=== PATIENT | female | born 1970 | race Hispanic/Latino ===

== ENCOUNTER → 2019-05-16 | Outpatient (CLI) | payer BC ==
[~2019-05-16] MED LIST: ALBU90AE IH; AZEL23SP NS; BUDE10.2 IH; CETI10CA5 PO; CITA40TA14 PO; IBUP-2071 PO; MONT10TA21 PO; OXYB5 PO; VIT D2 PO
== END | disposition home or self-care (01) ==
LOC: RAH 11:02
PROVIDERS: ATTEND Orthopaedic Surgery
DX: S93.491A Sprain of other ligament of right ankle, initial encounter (principal); M77.31 Calcaneal spur, right foot; X58.XXXA Exposure to other specified factors, initial encounter; Y93.89 Activity, other specified; Y92.89 Other specified places as the place of occurrence of the external cause; Y99.8 Other external cause status
CPT/HCPCS: 73721

== ENCOUNTER → 2019-11-14 | Outpatient (CLI) | payer BC | END | disposition home or self-care (01) | LOC: RAH 15:46 | PROVIDERS: ATTEND Physical Medicine & Rehabilitation | DX: M54.12 Radiculopathy, cervical region (principal) | CPT/HCPCS: 72040 ==

== ENCOUNTER 2019-12-31 06:03 | Day surgery (SDC) | payer BC ==
[2019-12-27 10:02] VITALS: BP 128/96
[2019-12-31] VITALS (12 sets, daily range): BP systolic 110–128; BP diastolic 68–79
[~2019-12-31] VITALS: Ht 161.3 cm; Wt 77.0 kg
[~2019-12-31 06:03] MED LIST changes: -AZEL23SP NS; -CITA40TA14 PO; +CYCL10 PO; +DOCU-116 PO; +FISH OIL PO; +FLUT16H NASAL; -IBUP-2071 PO; +LEVO50TA11 PO; +PANT40TA PO; +PREG75 PO; +SULF500T8 PO; +TIOT18CA3 IH; +TOCI162D SQ; +VENL-53 PO
[2019-12-31] MEDS ORDERED: LIDOCAINE HCL-MPF 0.5% 50ML VIAL IJ ONE (07:07)
[2019-12-31] MEDS ORDERED: LACTATED RINGERS 1000ML 1,000 ML IV ONE (07:15)
[2019-12-31] MEDS: CLINDAMYCIN 900 MG/D5% WATER 50 ML IV SCH ×2 (07:30→08:15)
[2019-12-31] MEDS ORDERED: MIDAZOLAM HCL 1 MG/ML 2ML VIAL ONE ×2 (07:39→08:25)
[2019-12-31] MEDS ORDERED: FENTANYL CITRATE PF 50 MCG/1 ML 2ML VIAL ONE (07:39)
[2019-12-31] MEDS ORDERED: MEPERIDINE-PF 25 MG/ML SYG ONE (09:04)
== END 2019-12-31 10:25 | disposition home or self-care (01) ==
LOC: DAH 06:03
PROVIDERS: ATTEND Neurological Surgery
DX: G56.01 Carpal tunnel syndrome, right upper limb (principal); M79.7 Fibromyalgia; J45.909 Unspecified asthma, uncomplicated; M19.90 Unspecified osteoarthritis, unspecified site; M06.9 Rheumatoid arthritis, unspecified; Z79.899 Other long term (current) drug therapy; Z88.0 Allergy status to penicillin; Z88.8 Allergy status to other drugs, medicaments and biological substances; Z11.59 Encounter for screening for other viral diseases; Z98.890 Other specified postprocedural states
CPT/HCPCS: 36415; 64721; A4215 ×2; A4216; A4221; A4222; A4223 ×2; A4663; J2175; J2250 ×2; J3010; J3490; J7030; J7120; U0003

== ENCOUNTER → 2020-06-18 | Outpatient (CLI) | payer BC | END | disposition home or self-care (01) | LOC: RAH 11:01 | PROVIDERS: ATTEND Physical Medicine & Rehabilitation | DX: M54.5 Low back pain (principal) | CPT/HCPCS: 72110 ==

== ENCOUNTER → 2020-07-08 | Outpatient (CLI) | payer BC | END | disposition home or self-care (01) | LOC: RAH 13:52 | PROVIDERS: ATTEND Physical Medicine & Rehabilitation | DX: M51.26 Other intervertebral disc displacement, lumbar region (principal); M47.816 Spondylosis without myelopathy or radiculopathy, lumbar region; M51.36 Other intervertebral disc degeneration, lumbar region | CPT/HCPCS: 72148 ==

== ENCOUNTER → 2020-07-24 | Outpatient (CLI) | payer BC | END | disposition home or self-care (01) | LOC: RAH 07:43 | PROVIDERS: ATTEND Physical Medicine & Rehabilitation | DX: M50.123 Cervical disc disorder at C6-C7 level with radiculopathy (principal) | CPT/HCPCS: 72141 ==

== ENCOUNTER → 2020-10-21 | Outpatient (CLI) | payer BC | END | disposition home or self-care (01) | LOC: RAH 10:34 | PROVIDERS: ATTEND Internal Medicine Nephrology | DX: M25.552 Pain in left hip (principal) | CPT/HCPCS: 73502 ==

== ENCOUNTER 2020-11-25 06:00 | Day surgery (SDC) | payer BC ==
[2020-11-24 10:27] VITALS: BP 108/69
[~2020-11-25] VITALS: Ht 157.5 cm; Wt 72.8 kg
[2020-11-25] VITALS (14 sets, daily range): BP systolic 102–134; BP diastolic 54–76
[~2020-11-25 06:00] MED LIST changes: +DICY20TA11 PO; -DOCU-116 PO; +ESOM40CA PO; -FISH OIL PO; -FLUT16H NASAL; +LINA145C PO; +ONDA4TAB4 PO; -PANT40TA PO; -TIOT18CA3 IH; -VIT D2 PO
[2020-11-25] MEDS ORDERED: LACTATED RINGERS 1000ML 1,000 ML IV ONE (06:33)
[2020-11-25] MEDS ORDERED: CLINDAMYCIN 900 MG/D5% WATER 50 ML IV ONE (06:33)
[2020-11-25] MEDS ORDERED: MIDAZOLAM HCL 1 MG/ML 2ML VIAL ONE ×2 (06:45→07:11)
[2020-11-25] MEDS ORDERED: FENTANYL CITRATE PF 50 MCG/1 ML 2ML VIAL ONE (06:46)
[2020-11-25] MEDS ORDERED: LIDOCAINE HCL-MPF 0.5% 50ML VIAL IJ ONE (06:49)
[2020-11-25] MEDS ORDERED: CLINDAMYCIN 900 MG/D5% WATER 50 ML IV SCH (08:00)
[2020-11-25] MEDS ORDERED: MEPERIDINE-PF 25 MG/ML SYG ONE (08:23)
[2020-11-25] MEDS ORDERED: KETOROLAC TROMETHAMINE 30MG/ML ONE (08:28)
[2020-11-25] MEDS ORDERED: ONDANSETRON HCL 4 MG/2 ML VIAL ONE ×2 (08:39→09:21)
[2020-11-25] MEDS ORDERED: ONDANSETRON HCL 4 MG/2 ML VIAL IVP PRN (09:30)
== END 2020-11-25 10:00 | disposition home or self-care (01) ==
LOC: DAH 06:00
PROVIDERS: ATTEND Neurological Surgery
DX: G56.02 Carpal tunnel syndrome, left upper limb (principal); Z20.822 Contact with and (suspected) exposure to COVID-19; J45.909 Unspecified asthma, uncomplicated; M19.90 Unspecified osteoarthritis, unspecified site; E03.9 Hypothyroidism, unspecified; M06.9 Rheumatoid arthritis, unspecified; M79.7 Fibromyalgia; Z79.899 Other long term (current) drug therapy; Z98.890 Other specified postprocedural states
CPT/HCPCS: 64721; A4215 ×2; A4216; A4221; A4222; A4223 ×2; A4663; A6260; C9803; J1885; J2175; J2250 ×2; J2405 ×2; J3010; J3490 ×2; J7120; U0003

== ENCOUNTER → 2021-05-12 | Outpatient (CLI) | payer BC ==
[~2021-05-12] MED LIST changes: -CYCL10 PO; +CYCL10TA16 PO; -DICY20TA11 PO; +DICY20TA3 PO
== END | disposition home or self-care (01) ==
LOC: SHCH 09:04
PROVIDERS: ATTEND Internal Medicine Cardiovascular Disease
DX: I08.3 Combined rheumatic disorders of mitral, aortic and tricuspid valves (principal); E78.5 Hyperlipidemia, unspecified; R55 Syncope and collapse
CPT/HCPCS: 93306; 93356

== ENCOUNTER → 2021-05-17 | Outpatient (CLI) | payer BC ==
[~2021-05-17] VITALS: Ht 162.6 cm; Wt 76.7 kg
[~2021-05-17] MED LIST changes: +REGADENOSON 0.4 MG/5 ML PF SYG IVP SCH
== END | disposition home or self-care (01) ==
LOC: SHCH 08:40
PROVIDERS: ATTEND Internal Medicine Cardiovascular Disease
DX: U07.1 COVID-19 (principal); R06.09 Other forms of dyspnea
CPT/HCPCS: 78452; 93017; 96374; A9500 ×2; J2785

== ENCOUNTER → 2021-08-18 | Outpatient (CLI) | payer BC ==
[~2021-08-18] MED LIST changes: -REGADENOSON 0.4 MG/5 ML PF SYG IVP SCH
== END | disposition home or self-care (01) ==
LOC: RAH 08:59
PROVIDERS: ATTEND Internal Medicine Gastroenterology
DX: K44.9 Diaphragmatic hernia without obstruction or gangrene (principal); R13.10 Dysphagia, unspecified
CPT/HCPCS: 74240

== ENCOUNTER → 2022-04-04 | Outpatient (CLI) | payer BC | END | disposition home or self-care (01) | LOC: RAH 11:09 | PROVIDERS: ATTEND Physical Medicine & Rehabilitation | DX: M50.122 Cervical disc disorder at C5-C6 level with radiculopathy (principal); Z88.0 Allergy status to penicillin; Z88.8 Allergy status to other drugs, medicaments and biological substances | CPT/HCPCS: 72141 ==

== ENCOUNTER → 2023-01-30 | Outpatient (CLI) | payer BC ==
[~2023-01-30] MED LIST changes: +MONT-47 PO; -MONT10TA21 PO; -OXYB5 PO; +OXYB5TAB16 PO
== END | disposition home or self-care (01) ==
LOC: RAH 14:09
PROVIDERS: ATTEND Otolaryngology Plastic Surgery within the Head & Neck
DX: J32.9 Chronic sinusitis, unspecified (principal); J32.0 Chronic maxillary sinusitis; J33.8 Other polyp of sinus
CPT/HCPCS: 70486

== ENCOUNTER → 2023-02-14 | Outpatient (CLI) | payer BC ==
[~2023-02-14] MED LIST changes: +GADOTERATE MEGLUMINE 10 MMOL/20 ML VIAL IV ONE
== END | disposition home or self-care (01) ==
LOC: RAH 14:42
PROVIDERS: ATTEND Neurological Surgery
DX: M50.122 Cervical disc disorder at C5-C6 level with radiculopathy (principal); M50.121 Cervical disc disorder at C4-C5 level with radiculopathy; M48.02 Spinal stenosis, cervical region
CPT/HCPCS: 72156; A9575

== ENCOUNTER → 2023-10-04 | Outpatient (CLI) | payer BC ==
[~2023-10-04] MED LIST changes: -GADOTERATE MEGLUMINE 10 MMOL/20 ML VIAL IV ONE; +OXYB-61 PO; -OXYB5TAB16 PO
== END | disposition home or self-care (01) ==
LOC: RAH 12:05
PROVIDERS: ATTEND Anesthesiology Pain Medicine
DX: M51.16 Intervertebral disc disorders with radiculopathy, lumbar region (principal); M47.26 Other spondylosis with radiculopathy, lumbar region; M48.061 Spinal stenosis, lumbar region without neurogenic claudication; M48.07 Spinal stenosis, lumbosacral region
CPT/HCPCS: 72148

== ENCOUNTER → 2024-07-24 | Outpatient (CLI) | payer BC, MEDICARE ==
--- NOTE | 2024-07-24 14:41 | HMCIMG ---
CT ABDOMEN WITHOUT CONTRAST. CT PELVIS WITHOUT CONTRAST. INDICATION: Dysuria TECHNIQUE: Routine transaxial imaging using 5 mm slice thickness through the abdomen and pelvis without the administration of IV contrast. Thin slice reconstructions are also provided. Coronal and sagittal reformatted images acquired for interpretation. CT was performed with one or more of the following dose reduction techniques: Automated exposure control, adjustment of the mA and/or kV according to patient size, or use of iterative reconstruction technique. COMPARISON: None FINDINGS: ON NONCONTRAST IMAGING: ABDOMEN: Heart size is normal. Visible lung bases are clear. No abnormal renal calcifications, hydronephrosis, perinephric inflammation, or proximal hydroureter detected. Left kidney is rotated with the hilum facing anteriorly. The liver is normal in size and smooth in contour without biliary duct dilation. The spleen is normal in size and attenuation. The gallbladder is contracted. The pancreas appears normal without pancreatic duct dilation. The adrenal glands appear normal. No significant abdominal, retrocrural or retroperitoneal adenopathy noted. No evidence for intra-abdominal free air or organized fluid collection. No aortic aneurysmal dilation identified. PELVIS: No abnormal calcifications within the urinary bladder or distal ureters. No evidence for free air or organized pelvic fluid collection. No significant pelvic adenopathy detected. Moderate distal colonic stool burden. Terminal ileum appears unremarkable. The appendix appears normal. Uterus is absent. Visible osseous structures are intact. IMPRESSION: No evidence for any acute intra-abdominal or pelvic process, including no evidence for urolithiasis or cystitis. Additional minor findings, postsurgical changes, and pertinent negatives as reported.
--- NOTE | 2024-07-24 14:59 | HMCIMG ---
ULTRASOUND RENAL COMPLETE INDICATION: Dysuria TECHNIQUE: Routine ultrasound of the kidneys and urinary bladder with grayscale and color Doppler imaging was performed in real-time, and subsequently made available for review. COMPARISON: No prior studies available for comparison. FINDINGS: The right kidney measures 12.2 x 4.6 x 4.8 cm. No abnormal mass demonstrated. No evidence for hydronephrosis or shadowing stone. The left kidney measures 11.7 x 5.9 x 5.6 cm. No abnormal mass demonstrated. No evidence for hydronephrosis or shadowing stone. Urinary bladder appears normal. Prevoid volume = 185 mL and postvoid = 10 mL. No free fluid demonstrated. IMPRESSION: Mild post void residual, but normal sonographic appearance of the kidneys.
== END | disposition home or self-care (01) ==
LOC: RAH 13:52
PROVIDERS: ATTEND Urology
DX: K82.0 Obstruction of gallbladder (principal); R30.0 Dysuria
CPT/HCPCS: 74176; 76770

== ENCOUNTER → 2024-08-13 | Outpatient (CLI) | payer BC, MEDICARE ==
--- NOTE | 2024-08-13 16:02 | HMCIMG ---
SACRUM/COCCYX 2+VWS HISTORY: Spinal stenosis COMPARISON: None TECHNIQUE: 4 images of sacrum and coccyx were obtained. FINDINGS: There is no acute displaced fracture or dislocation. Degenerative changes are seen. IMPRESSION: 1. Findings as described above.
--- NOTE | 2024-08-13 16:03 | HMCIMG ---
LUMBAR W FLEXION/EXTENSION REASON: SPINAL STENOSIS W/ NEUROGENIC CLAUDICATION/RADICULOPATHY. COMPARISON: None TECHNIQUE: 4 images of lumbar spine were obtained including flexion and extension views. FINDINGS: There is straightening of normal lordotic lumbar curvature which may be related to muscle spasm or positioning. Anterior osteophytes are seen. No loss of vertebral height is seen. IMPRESSION: No loss of vertebral height is seen. DJD.
== END | disposition home or self-care (01) ==
LOC: RAH 14:17
PROVIDERS: ATTEND Anesthesiology Pain Medicine
DX: M47.26 Other spondylosis with radiculopathy, lumbar region (principal); M47.818 Spondylosis without myelopathy or radiculopathy, sacral and sacrococcygeal region; M48.062 Spinal stenosis, lumbar region with neurogenic claudication; M25.78 Osteophyte, vertebrae
CPT/HCPCS: 72114; 72220